=== PATIENT | female | born 1980 | race Caucasian/White ===

== ENCOUNTER 2017-08-03 10:12 | Emergency (ER) | payer OTHER ==
[2017-08-03 11:30] LABS: BASOPHIL % 0.9 % (0-2); PLATELET COUNT 233 x10^3mcL (130-400)
[2017-08-03 12:41] LABS: CALCIUM 8.9 mg/dL (8.5-10.1); CARBON DIOXIDE 28.3 mmol/L (21-32); CHLORIDE SERUM 103 mmol/L (98-107); CREATININE SERUM 0.9 mg/dL (0.6-1.0); GFR1 > 60 mL/min; GLUCOSE SERUM 124 mg/dL (74-106); POTASSIUM SERUM 3.4 mmol/L (3.5-5.1); SODIUM SERUM 140 mmol/L (136-145)
[2017-08-03 12:52] LABS: ALBUMIN 3.9 g/dL (3.4-5.0); ALKALINE PHOSPHATASE 69 U/L (46-116); ALT/SGPT 80 U/L (14-59); AST/SGOT 42 U/L (15-37); BILIRUBIN TOTAL 0.74 mg/dL (0.20-1.00); CHOLESTEROL 178 mg/dL (<200); HDL CHOLESTEROL 34 mg/dL (40-60); PHOSPHOROUS 3.3 mg/dL (2.5-4.9); TOTAL PROTEIN, SERUM 7.7 g/dL (6.4-8.2); URIC ACID 7.8 mg/dL (2.6-6.0)
[2017-08-03 13:45] VITALS: BP 146/94
== END 2017-08-03 13:50 | disposition home or self-care (01) ==
LOC: ED 10:12
PROVIDERS: Emergency Medicine
DX: R00.2 Palpitations (principal); R11.0 Nausea
CPT/HCPCS: 36415; 83880

== ENCOUNTER 2017-10-29 17:38 | Emergency (ER) | payer OTHER ==
[~2017-10-29] VITALS: Ht 162.6 cm; Wt 107.7 kg
[2017-10-29 22:15] VITALS: BP 130/67
== END 2017-10-29 22:15 | disposition home or self-care (01) ==
LOC: ED 17:38
DX: M25.572 Pain in left ankle and joints of left foot (principal); R03.0 Elevated blood-pressure reading, without diagnosis of hypertension

== ENCOUNTER 2018-08-13 17:39 | Emergency (ER) | payer OTHER ==
[~2018-08-13] VITALS: Ht 162.6 cm; Wt 107.0 kg
[2018-08-13 17:42] VITALS: Ht 162.6 cm; Wt 107.0 kg
[2018-08-13 19:13] VITALS: BP 144/98
== END 2018-08-13 19:13 | disposition home or self-care (01) ==
LOC: ED 17:39
DX: M19.041 Primary osteoarthritis, right hand (principal)

== ENCOUNTER 2019-10-31 15:01 | Emergency (ER) | payer OTHER ==
[~2019-10-31] VITALS: Ht 162.6 cm; Wt 103.9 kg
[2019-10-31 15:08] VITALS: BP 212/115; Ht 162.6 cm; Wt 103.9 kg
== END 2019-10-31 16:52 | disposition home or self-care (01) ==
LOC: ED 15:01
DX: M54.6 Pain in thoracic spine (principal); I10 Essential (primary) hypertension
CPT/HCPCS: J1885

== ENCOUNTER 2020-09-02 13:32 | Emergency (ER) | payer OTHER ==
[~2020-09-02] VITALS: Ht 162.6 cm; Wt 106.6 kg
[2020-09-02 13:49] VITALS: Ht 162.6 cm; Wt 106.6 kg
[2020-09-02 15:09] VITALS: BP 146/95
== END 2020-09-02 15:09 | disposition home or self-care (01) ==
LOC: ED 13:32
DX: S09.8XXA Other specified injuries of head, initial encounter (principal); S49.91XA Unspecified injury of right shoulder and upper arm, initial encounter; W20.8XXA Other cause of strike by thrown, projected or falling object, initial encounter; Y93.89 Activity, other specified; Y92.89 Other specified places as the place of occurrence of the external cause; Y99.8 Other external cause status
CPT/HCPCS: Q0092

== ENCOUNTER 2021-02-12 18:13 | Emergency (ER) | payer OTHER, SELFPAY ==
[~2021-02-12] VITALS: Ht 167.6 cm; Wt 103.9 kg
[2021-02-12 18:39] VITALS: Ht 167.6 cm; Wt 103.9 kg
[2021-02-12 19:43] LABS: BASOPHIL % 0.5 % (0.2-1.3); PLATELET COUNT 273 x10^3mcL (179-408); RED CELL DISTRIBUTION WIDTH 13.8 % (12.3-17.7)
[2021-02-12 20:03] LABS: UA SPECIFIC GRAVITY 1.015 (1.005-1.035); microscopic required? YES; urine erythrocyte 2+ (NEGATIVE)
[2021-02-12 20:30] LABS: CALCIUM 8.9 mg/dL (8.5-10.1); CARBON DIOXIDE 30.2 mmol/L (21-32); CREATININE SERUM 1.6 mg/dL (0.6-1.0); POTASSIUM SERUM 3.8 mmol/L (3.5-5.1)
[2021-02-12 20:41] LABS: ALBUMIN 4.1 g/dL (3.4-5.0); BILIRUBIN TOTAL 0.84 mg/dL (0.20-1.00); TOTAL PROTEIN, SERUM 7.9 g/dL (6.4-8.2)
[2021-02-12] MEDS ORDERED: PRI20 PO (22:44)
[2021-02-12 23:44] VITALS: BP 127/85
== END 2021-02-12 23:44 | disposition home or self-care (01) ==
LOC: ED 18:13
PROVIDERS: Specialist
DX: R10.13 Epigastric pain (principal); I10 Essential (primary) hypertension
CPT/HCPCS: J1885; Q0162